=== PATIENT | female | born 1985 | race Caucasian/White ===

== ENCOUNTER 2016-07-09 17:18 | Outpatient (CLI) | payer MEDICAID ==
[~2016-07-09] VITALS: Ht 152.4 cm; Wt 85.9 kg
[~2016-07-09 17:18] MED LIST: NITR-58 PO; PREN-39 PO
[2016-07-09 17:37] VITALS: BP 107/67; PULSE 93; RESP 18; Ht 152.4 cm; Wt 85.9 kg
[2016-07-09] MEDS ORDERED: ACETAMINOPHEN 325 MG TAB PO ONE (19:00)
[2016-07-09 19:22] LABS: ADD UMIC NO; URINE BILIRUBIN (Dip) NEGATIVE (NEGATIVE); URINE BLOOD (Dip) NEGATIVE (NEGATIVE); URINE COLOR YELLOW (YELLOW); URINE GLUCOSE (Dip) NEGATIVE (NEGATIVE); URINE KETONES (Dip) NEGATIVE (NEGATIVE); URINE LEUKOCYTE ESTERASE (Dip) NEGATIVE (NEGATIVE); URINE NITRITE (Dip) NEGATIVE (NEGATIVE); URINE TOTAL PROTEIN (Dip) NEGATIVE (NEGATIVE); URINE UROBILINOGEN (Dip) 1.0 E.U./dL (0.1-1.0)
--- NOTE | 2016-07-09 20:13 | QN ---
Documentation Comment 30 years old with history of 4 and due dates of August 15 with at 34 weeks and 5 days presented with complaint of vaginal pressure. She denies any leaking of fluid, vaginal bleeding or contractions. She denies any dysuria, frequency or any other urinary symptoms. General appearance: Alert and oriented 4 and is not in acute distress. Next Abdomen: Soft, non tender, no rebound tenderness, no guarding no rigidity No suprapubic tenderness Vaginal examination: Cervix closed and long NST: Category 1 Rare contractions seen, patient does not feel them UA: Negative Assessment: IUP at 34 weeks and 5 days Vaginal and pelvic pressure, likely related to musculoskeletal pain No evidence of labor or uterine contractions seen No evidence of UTI Patient received a dose of Tylenol and her symptoms resolved Plan: Strict labor precaution and kick count discussed Follow-up in 2-3 days with her OB office recommended Tylenol as needed pelvic pain every 4 hours Patient verbalized understanding Adequate hydration BREANA GARRISON MD Jul 09, 2016 20:13
--- NOTE | 2016-07-09 23:21 | TRIAGE ---
OB Triage Datetime Report Generated by CPN: 07/09/2016 23:20 Datetime: 07/09/2016 19:31 Stage of : OB Triage Datetime: 07/09/2016 19:22 Labor Evaluation Frequency: 0 Monitor Mode: External Duration (sec)2399: 0 Pattern: Normal: <= 5 Contractions in 10 Minutes Contraction Comments: NONE Heart Rate FHR Baseline Rate: 135 Monitor Mode: External US FHR Baseline Changes: No Baseline Change Variability: Moderate 6-25 bpm Accelerations: 15X15 Decelerations: None Category: Category I Comments: NST REACTIVE, PT. REMOVED FROM EXTERNAL MONITORS Pain Presence: Intermittent Pain Type: Pressure Pain Location: Perineum Pain Assessment Comments: PT. STATES 'NO MUCHO' WHEN ASKED ABOUT PAIN LEVEL Datetime: 07/09/2016 19:14 Assessment Type: Triage Maternal Assessment Level of Consciousness: Fully Conscious DTR's/Clonus: DTRs 2+; No Clonus Headache: Denies Blurred Vision: No Respiratory Effort: Unlabored; Regular Rhythm; Equal Expansion Nausea/Vomiting: Denies RUQ Epigastric Pain: Denies Facial Edema: None Fall Risk Assessment History of Falling: (0) No Secondary Diagnosis: (0) No Ambulatory Aid: (0) Bedrest/Nurse Assist IV Therapy: (0) No Gait: (0) Normal/Bedrest/Immobile Mental Status: (0) Oriented to Own Ability Fall Score: 0 Fall Risk Score Definition: No Risk: No action required Datetime: 07/09/2016 18:30 Stage of : OB Triage Maternal Assessment Level of Consciousness: Fully Conscious Labor Evaluation Frequency: 1UC/HR Monitor Mode: External Duration (sec)2399: 90 Quality: Mild Resting Tone [place]: Relaxed Heart Rate FHR Baseline Rate: 145 Monitor Mode: External US Variability: Moderate 6-25 bpm Accelerations: 15X15 Decelerations: None Pain Assessment Pain Scale: 3 Pain Presence: Intermittent Pain Type: Ache Pain Location: Abdomen; Perineum Pain Goal: 3 Pain Relief Measures: Pain Medication Given Membrane Status: Intact Vaginal Bleeding: None Datetime: 07/09/2016 18:08 Vaginal Exam Dilatation (cms): 0.0 Exam By: ARDALAN Datetime: 07/09/2016 17:34 Assessment Type: Triage Maternal Assessment Level of Consciousness: Fully Conscious DTR's/Clonus: DTRs 2+; No Clonus Headache: Denies Blurred Vision: No Respiratory Effort: Unlabored; Regular Rhythm; Equal Expansion Breath Sounds, Left: Clear and Equal Breath Sounds, Right: Clear and Equal Nausea/Vomiting: Denies RUQ Epigastric Pain: Denies Lower Extremities Edema: None Degree: None Upper Extremities Edema: None Degree: None Facial Edema: None Fall Risk Assessment History of Falling: (0) No Secondary Diagnosis: (0) No Ambulatory Aid: (0) Bedrest/Nurse Assist IV Therapy: (0) No Gait: (0) Normal/Bedrest/Immobile Mental Status: (0) Oriented to Own Ability Fall Score: 0 Fall Risk Score Definition: No Risk: No action required Datetime: 07/09/2016 17:33 EGA: 34.5 Datetime: 07/09/2016 17:32 Time of Arrival: 07/09/2016 17:15 Arrived By: Ambulatory Arrived From: Home Chief Complaint: pt here c/o abd. pain AND VAG. PRESSURE. Movement: Present Contractions: Denies/Absent Rupture of Membranes: Denies Vaginal Discharge: Denies Recent Sexual Intercouse: Denies Abdominal Trauma: Not Applicable Patient Complaints: Other Time Provider Notified: 07/09/2016 17:50 Provider Notified: RAZ Initial Plan: UA, TYLENOL, PO HYDRATION,
== END 2016-07-09 19:56 | disposition home or self-care (01) ==
LOC: OBT 17:18 → L-D 17:18 → OBT 19:56
PROVIDERS: ATTEND Obstetrics & Gynecology
DX: O26.893 Other specified pregnancy related conditions, third trimester (principal); R10.2 Pelvic and perineal pain; Z3A.34 34 weeks gestation of pregnancy
CPT/HCPCS: 81003; Z7500; Z7610; G0463

== ENCOUNTER 2016-08-07 18:38 | Inpatient (IN) | payer MEDICAID ==
[~2016-08-07] VITALS: Ht 152.4 cm; Wt 87.9 kg
[~2016-08-07 18:38] MED LIST changes: -NITR-58 PO
[2016-08-07 19:00] VITALS: Ht 152.4 cm; Wt 87.9 kg
[2016-08-07 19:01] VITALS: BP 120/72; PULSE 73; RESP 18
[2016-08-07] MEDS ORDERED: LACTATED RINGER'S 1,000 ML IV SCH (20:09)
[2016-08-07] MEDS ORDERED: CARBOPROST 250 MCG INJ IM PRN (20:30)
[2016-08-07] MEDS ORDERED: OXYTOCIN 30 UNITS/LR 500 ML IV PRN (20:30)
[2016-08-07] MEDS ORDERED: METHYLERGONOVINE 0.2 MG INJ IM PRN (20:30)
[2016-08-07] MEDS ORDERED: CEFAZOLIN 2 GM/50 ML (PMX) 50 ML IV SCH (20:30)
[2016-08-07] MEDS ORDERED: TERBUTALINE 1 MG/ML INJ SC ONE (20:30)
[2016-08-07] MEDS ORDERED: MISOPROSTOL 200 MCG TAB PR PRN (20:30)
--- NOTE | 2016-08-07 20:45 | HP ---
Date/Time of Note Date/Time of Note DATE: 08/07/16 TIME: 20:40 OB - History Hx of Present Free Text/Dictation 30 yo P4 @ 38wks 6 days, presents in early labor, prior c/d x 4, no VB, no LOF, good FM Chief Complaint: ctx Last Menstrual Period: Nov 09, 2015 Estimated Due Date: Aug 11, 2016 : 5 Para: 4 Care: Good Care Past Family/Social History * Past Medical, Surgical, Family and Obstetric Histories reviewed from chart. Blood Type: O+ Rubella: immune RPR/VDRL: Negative GBS Status: Negative HBsAG: Negative OB Admission Exam Vital Signs Vital Signs Vital Signs Date Time Temp Pulse Resp B/P Pulse Ox O2 Delivery O2 Flow Rate FiO2 08/07/16 19:01 98.2 73 18 120/72 Room Air YONIS YEE MD Aug 07, 2016 20:45
[2016-08-07 20:49] LABS: ADD SCAN DIFF NO
[2016-08-07 20:51] LABS: BASOPHILS % 0.1 % (0.0-2.0); EOSINOPHILS % 0.5 % (0.0-7.0); HEMATOCRIT 34.7 % (37.0-47.0); HEMOGLOBIN 12.1 g/dl (12.0-16.0); LYMPHOCYTES # 2.3 10^3/ul (0.8-2.9); LYMPHOCYTES % 32.1 % (15.0-51.0); MEAN CORPUSCULAR HEMOGLOBIN 32.3 pg (29.0-33.0); MEAN CORPUSCULAR HGB CONC 34.9 g/dl (32.0-37.0); MEAN CORPUSCULAR VOLUME 92.5 fl (82.0-101.0); MEAN PLATELET VOLUME 12.1 fl (7.4-10.4); MONOCYTE # 0.5 10^3/ul (0.3-0.9); MONOCYTES % 6.2 % (0.0-11.0); NEUTROPHIL # 4.4 10^3/ul (1.6-7.5); NEUTROPHILS % 60.8 % (39.0-77.0); PLATELET COUNT 137 10^3/UL (140-415); RED BLOOD COUNT 3.75 10^6/ul (4.20-5.40); RED CELL DISTRIBUTION WIDTH 13.2 % (11.5-14.5); WHITE BLOOD COUNT 7.3 10^3/ul (4.8-10.8)
[2016-08-07] MEDS ORDERED: CITRIC ACID/NA CITRATE 30 ML CUP PO ONE (21:00)
[2016-08-07 21:01] LABS: INR 0.88; PARTIAL THROMBOPLASTIN TIME 29.8 Sec (25.0-35.0); PROTIME 11.9 Sec (12.2-14.2); PT RATIO 0.9
[2016-08-07] MEDS ORDERED: ONDANSETRON 4 MG INJ IV ONE (21:06)
[2016-08-07] MEDS ORDERED: KETOROLAC 30 MG INJ ONE (21:26)
[2016-08-07] MEDS ORDERED: OXYTOCIN 10 UNIT INJ ONE (21:26)
[2016-08-07] MEDS ORDERED: METOCLOPRAMIDE 10 MG INJ ONE (21:26)
[2016-08-07] MEDS ORDERED: DEXAMETHASONE 4 MG/ML 1 ML INJ ONE (21:26)
[2016-08-07] MEDS ORDERED: PHENYLephrine (100 MCG/ML) 5ML SYG ONE (21:26)
[2016-08-07] MEDS ORDERED: morphine SULFATE/PF (10 MG/10 ML) INJ ONE (21:26)
[2016-08-07] MEDS ORDERED: MEPERIDINE 100 MG INJ ONE (21:55)
[2016-08-07] MEDS ORDERED: KETOROLAC 30 MG INJ IV PRN (22:00)
[2016-08-07] MEDS ORDERED: ZOLPIDEM 5 MG TAB PO PRN (22:00)
[2016-08-07] MEDS ORDERED: DIPHENHYDRAMINE 50 MG INJ IV PRN (22:00)
[2016-08-07] MEDS ORDERED: HYDROmorphONE 1 MG/ML SYG IV PRN ×2 (22:00)
[2016-08-07] MEDS ORDERED: morphine 2 MG INJ IV PRN ×2 (22:00)
[2016-08-07] MEDS ORDERED: NALOXONE (0.4 MG/ML) INJ IV PRN (22:00)
[2016-08-07] MEDS ORDERED: PROCHLORPERAZINE 10 MG INJ IV PRN (22:00)
[2016-08-07] MEDS ORDERED: ONDANSETRON 4 MG INJ IV PRN (22:00)
[2016-08-07] MEDS: OXYTOCIN 30 UNITS/LR 500 ML IV SCH (23:37)
--- NOTE | 2016-08-08 00:05 | OPR ---
Operative Report Planned Procedure Free Text/Dictation h/o previous c/d x 4, patient presents in labor Procedure date Aug 07, 2016 Procedure(s) repeat c/d Performed by: YONIS YEE MD Assisting provider: PAVITHRA JEFFERSON M.D. Anesthesia Type: spinal Procedure Description Under satisfactory [spinal] anesthesia, the patient was prepped and draped and placed in a supine position, tilted to the left. Pfannenstiel incision was made , carried through the subcutaneous tissue. Bleeders brought under control with electrocautery. Fascia incised to the length of the incision. Rectus muscles from the fascia, divided midline. Peritoneum entered bluntly. Exploration of abdomen revealed gravid uterus. Dense adhesion between fascia and muscle noted. Bladder flap was developed. Transverse incision was made in the lower segment of the uterus. Amniotic sac ruptured. [clear] amniotic fluid noted. [] Nasal oropharyngeal suction was performed. The baby was handed to the team for immediate attention. The placenta was delivered manually intact. Uterine cavity was cleaned with wet sponge and drainage established. Uterus closed in 2 layers using [0 vicyrl] in continuous fashion. Bilateral tubal ligation performed by Pomery method. Peritoneal cavity irrigated with warm saline. Sponge, needle and instrument count reported to be correct. Abdominal peritoneum closed with [2 vicryl] continuously. Fascia closed with [0 vicryl], and skin closed with stella. Estimated blood loss [800]mL. Post-Procedure Findings: Live Baby [boy], Apgars [9] and [9], weight [], position [vtx], [] presentation []cord. Complications: None Pt Condition post procedure: stable Physician Certification I, the undersigned physician, hereby certify that I have discussed the procedure described in this consent form with this patient (or the patient's legal account maintenance representative), including: * The risk and benefits of the procedure; * Any adverse reactions that may reasonably be expected to occur; * Any alternative efficacious methods of treatment which may be medically viable ; * The potential problems that may occur during recuperation; * Potential for blood transfusion and associated risks/benefits; and * Any research or economic interest I may have regarding this treatment. I further certify that the patient/legally responsible person was encouraged to ask question and that all questions were answered. YONIS YEE MD Aug 08, 2016 00:05
[2016-08-08] MEDS: OXYTOCIN 30 UNITS/LR 500 ML IV SCH (00:09)
[2016-08-08] MEDS ORDERED: OXYTOCIN 30 UNITS/LR 500 ML IV PRN (00:30)
[2016-08-08] MEDS ORDERED: METHYLERGONOVINE 0.2 MG INJ IM PRN (00:30)
[2016-08-08] MEDS ORDERED: LANOLIN 7 GM TUBE TOP PRN (00:30)
[2016-08-08] MEDS ORDERED: CEFAZOLIN 2 GM/50 ML (PMX) 50 ML IV ONE (00:30)
[2016-08-08] MEDS ORDERED: CARBOPROST 250 MCG INJ IM PRN (00:30)
[2016-08-08] MEDS ORDERED: MISOPROSTOL 200 MCG TAB PR PRN (00:30)
[2016-08-08 01:50] VITALS: BP 142/69; PULSE 61
[2016-08-08 02:50] VITALS: BP 127/75; PULSE 71; RESP 19
[2016-08-08] MEDS: LACTATED RINGER'S 1,000 ML IV SCH ×3 (03:24→16:05)
[2016-08-08] MEDS ORDERED: CEFAZOLIN 2 GM/50 ML (PMX) 50 ML IVPB ONE (05:00)
[2016-08-08 08:08] LABS: ADD SCAN DIFF NO
[2016-08-08 08:10] LABS: BASOPHILS % 0.1 % (0.0-2.0); HEMATOCRIT 32.9 % (37.0-47.0); HEMOGLOBIN 11.6 g/dl (12.0-16.0); LYMPHOCYTES # 1.3 10^3/ul (0.8-2.9); LYMPHOCYTES % 11.5 % (15.0-51.0); MEAN CORPUSCULAR HEMOGLOBIN 32.8 pg (29.0-33.0); MEAN CORPUSCULAR HGB CONC 35.3 g/dl (32.0-37.0); MEAN CORPUSCULAR VOLUME 92.9 fl (82.0-101.0); MEAN PLATELET VOLUME 11.9 fl (7.4-10.4); MONOCYTE # 0.5 10^3/ul (0.3-0.9); MONOCYTES % 4.7 % (0.0-11.0); NEUTROPHIL # 9.3 10^3/ul (1.6-7.5); NEUTROPHILS % 83.4 % (39.0-77.0); PLATELET COUNT 137 10^3/UL (140-415); RED BLOOD COUNT 3.54 10^6/ul (4.20-5.40); RED CELL DISTRIBUTION WIDTH 13.1 % (11.5-14.5); WHITE BLOOD COUNT 11.1 10^3/ul (4.8-10.8)
--- NOTE | 2016-08-08 08:14 | OPPN ---
Date/Time of Note Date/Time of Note DATE: 08/08/16 TIME: 08:14 Post-Anesthesia Notes Post-Anesthesia Note Activity: WNL Respiratory function: WNL Cardiovascular function: WNL Mental status: Baseline Pain reasonably controlled: Yes Hydration appropriate: Yes Nausea/Vomiting absent: Yes HILARIO GAUTHIER MD Aug 08, 2016 08:14
[2016-08-08 08:30] VITALS: BP 115/67; PULSE 68; RESP 18
--- NOTE | 2016-08-08 09:54 | PN ---
Date/Time of Note Date/Time of Note DATE: 08/08/16 TIME: 09:53 OB Subjective Subjective Subjective Post day 1 Afebrile, vital signs stable, abdomen soft moderately distended bowel sounds weak but present, lochia moderate extremity normal ambulation encouraged Laboratory Tests Test 08/07/16 20:30 08/08/16 07:58 White Blood Count 7.310^3/ul 11.110^3/ul Red Blood Count 3.7510^6/ul 3.5410^6/ul Hemoglobin 12.1g/dl 11.6g/dl Hematocrit 34.7% 32.9% Mean Corpuscular Volume 92.5fl 92.9fl Mean Corpuscular Hemoglobin 32.3pg 32.8pg Mean Corpuscular Hemoglobin Concent 34.9g/dl 35.3g/dl Red Cell Distribution Width 13.2% 13.1% Platelet Count 18419^3/UL 75203^3/UL Mean Platelet Volume 12.1fl 11.9fl Neutrophils % 60.8% 83.4% Lymphocytes % 32.1% 11.5% Monocytes % 6.2% 4.7% Eosinophils % 0.5% 0.0% Basophils % 0.1% 0.1% Nucleated Red Blood Cells % 0.0/100WBC 0.0/100WBC Neutrophils # 4.410^3/ul 9.310^3/ul Lymphocytes # 2.310^3/ul 1.310^3/ul Monocytes # 0.510^3/ul 0.510^3/ul Eosinophils # 0.010^3/ul 0.010^3/ul Basophils # 0.010^3/ul 0.010^3/ul Nucleated Red Blood Cells # 0.010^3/ul 0.010^3/ul Prothrombin Time 11.9Sec Prothrombin Time Ratio 0.9 INR International Normalized Ratio 0.88 Activated Partial Thromboplast Time 29.8Sec Current Medications Medications (Trade) Dose Ordered Sig/Wilbur Route PRN Reason Start Time Stop Time Status Last Admin Dose Admin Lactated Ringer's 1,000 ml @ 125 mls/hr Q8H IV 08/07/16 20:09 08/08/16 01:59 DC 08/07/16 20:27 Cefazolin Sodium/ Dextrose 50 ml @ 100 mls/hr ONCE IV 08/07/16 20:30 08/08/16 01:59 DC Oxytocin/Lactated Ringer's 500 ml @ 125 mls/hr ONCE IV 08/07/16 20:30 08/08/16 01:59 DC 08/08/16 00:09 Oxytocin/Lactated Ringer's 500 ml @ 0 mls/hr ONCE PRN IV For Hemorrhage Management 08/07/16 20:30 08/08/16 01:59 DC Methylergonovine Maleate (Methergine) 0.2 mg ONCE PRN IM VAGINAL BLEEDING 08/07/16 20:30 08/08/16 01:59 DC 08/08/16 01:24 Carboprost Tromethamine (Hemabate) 250 mcg ONCE PRN IM VAGINAL BLEEDING 08/07/16 20:30 08/08/16 01:59 DC Misoprostol (Cytotec) 1,000 mcg ONCE PRN OK VAGINAL BLEEDING 08/07/16 20:30 08/08/16 01:59 DC Terbutaline Sulfate (Brethine) 0.25 mg ONCE ONCE SC 08/07/16 20:30 08/08/16 01:59 DC 08/07/16 20:32 Ondansetron HCl (Zofran Inj) 4 mg ONCE ONCE IV 08/07/16 21:06 08/07/16 21:07 DC 08/07/16 21:09 Citric Acid/ Sodium Citrate (Bicitra) 30 ml ONCE ONCE PO 08/07/16 21:00 08/07/16 21:06 DC 08/07/16 21:08 Morphine Sulfate (Duramorph) 10 mg STK-MED ONCE .ROUTE 08/07/16 21:26 08/07/16 21:27 DC Metoclopramide HCl (Reglan) 10 mg STK-MED ONCE .ROUTE 08/07/16 21:26 08/07/16 21:27 DC Oxytocin (Oxytocin) 10 units STK-MED ONCE .ROUTE 08/07/16 21:26 08/07/16 21:27 DC Phenylephrine HCl (Adrian-Synephrine Inj Syg) 500 mcg STK-MED ONCE .ROUTE 08/07/16 21:26 08/07/16 21:27 DC Ketorolac Tromethamine (Toradol) 30 mg STK-MED ONCE .ROUTE 08/07/16 21:26 08/07/16 21:27 DC Dexamethasone (Decadron) 4 mg STK-MED ONCE .ROUTE 08/07/16 21:26 08/07/16 21:27 DC Meperidine HCl (Demerol) 100 mg STK-MED ONCE .ROUTE 08/07/16 21:55 08/07/16 21:56 DC Naloxone HCl (Narcan) 0.1 mg Q2M PRN IV FOR RESP RATE 8 OR LESS 08/07/16 22:00 08/08/16 21:59 Ketorolac Tromethamine (Toradol) 30 mg Q6H PRN IV PAIN 08/07/16 22:00 08/08/16 21:59 Morphine Sulfate (morphine) 2 mg Q3H PRN IV PAIN LEVEL 1-5 08/07/16 22:00 08/08/16 21:59 Morphine Sulfate (morphine) 4 mg Q3H PRN IV PAIN LEVEL 6-10 08/07/16 22:00 08/08/16 21:59 Hydromorphone HCl (Dilaudid) 0.2 mg Q3H PRN IV PAIN LEVEL 1-5 08/07/16 22:00 08/08/16 21:59 Hydromorphone HCl (Dilaudid) 0.4 mg Q3H PRN IV PAIN LEVEL 6-10 08/07/16 22:00 08/08/16 21:59 Diphenhydramine HCl (Benadryl) 25 mg Q6H PRN IV ITCHING 08/07/16 22:00 08/08/16 21:59 Ondansetron HCl (Zofran Inj) 4 mg Q6H PRN IV NAUSEA AND/OR VOMITING 08/07/16 22:00 08/08/16 21:59 Prochlorperazine (Compazine Inj) 10 mg ONCE PRN IV NAUSEA AND/OR VOMITING 08/07/16 22:00 08/08/16 21:59 Zolpidem Tartrate (Ambien) 5 mg HS MAY REPEAT X 1 PRN PO INSOMNIA 08/07/16 22:00 08/08/16 21:59 Miscellaneous Information Duramorph: 0.2 mg Spi... GIVEN XX 08/07/16 22:00 Lactated Ringer's 1,000 ml @ 125 mls/hr Q8H IV 08/08/16 00:05 08/08/16 03:24 Cefazolin Sodium/ Dextrose (Ancef 2 Gm/50 ml (Pmx)) 50 ml @ 100 mls/hr ONCE ONCE IV 08/08/16 00:30 08/08/16 00:59 DC Acetaminophen/ Codeine Phosphate (Tylenol No.3) 1 tab Q4H PRN PO PAIN LEVEL 4-6 08/08/16 22:00 Acetaminophen/ Codeine Phosphate (Tylenol No.3) 2 tab Q4H PRN PO PAIN LEVEL 7-10 08/08/16 22:00 Ibuprofen (Motrin) 600 mg Q6 PO 08/09/16 00:00 Simethicone (Mylicon) 160 mg Q8H PRN PO DISTENSION/GAS/BLOATING 08/08/16 00:30 Lanolin 1 applic 1 applic BEDSIDE MEDICATION PRN TOP BEDSIDE FOR GUILLERMO TO NIPPLES 08/08/16 00:30 Oxytocin/Lactated Ringer's 500 ml @ 0 mls/hr ONCE PRN IV For Hemorrhage Management 08/08/16 00:30 Methylergonovine Maleate (Methergine) 0.2 mg ONCE PRN IM VAGINAL BLEEDING 08/08/16 00:30 Carboprost Tromethamine (Hemabate) 250 mcg ONCE PRN IM VAGINAL BLEEDING 08/08/16 00:30 Misoprostol 1000 mcg 1,000 mcg ONCE PRN OK VAGINAL BLEEDING 08/08/16 00:30 Cefazolin Sodium/ Dextrose (Ancef 2 Gm/50 ml (Pmx)) 50 ml @ 100 mls/hr ONCE ONCE IVPB 08/08/16 05:00 08/08/16 05:29 DC 08/08/16 05:29 Influenza Virus Vaccine (Fluzone) 0.5 ml ONCE ONCE IM* 08/10/16 09:00 08/10/16 09:01 MIREYA CRANDALL MD Aug 08, 2016 09:54
[2016-08-08 16:23] VITALS: BP 100/62; PULSE 78; RESP 18
[2016-08-08 19:55] VITALS: BP 110/56; PULSE 80; RESP 19
[2016-08-08] MEDS ORDERED: ACETAMINOPHEN/CODEINE #3 TAB PO PRN (22:00)
[2016-08-08] MEDS: IBUPROFEN 600 MG TAB PO SCH (23:54)
[2016-08-09] MEDS: LACTATED RINGER'S 1,000 ML IV SCH ×2 (00:05→06:55)
[2016-08-09 03:50] VITALS: BP 102/53; PULSE 77; RESP 18
[2016-08-09] MEDS: IBUPROFEN 600 MG TAB PO SCH ×3 (05:39→18:00)
[2016-08-09 08:30] VITALS: BP 102/62; PULSE 66; RESP 18
--- NOTE | 2016-08-09 14:00 | QN ---
Documentation Comment POD#1 is stable afebrile NO VB +Flatus +Adequate urine BP WNL VS satble Gen NAD Abd Soft NT ND Dressing Removed Genitalia No blood at perinium --->Ambulation PAVITHRA JEFFERSON M.D. Aug 09, 2016 14:00
[2016-08-09] MEDS: ACETAMINOPHEN/CODEINE #3 TAB PO PRN ×2 (15:52→22:41)
[2016-08-09 16:11] VITALS: BP 110/61; PULSE 88; RESP 18
[2016-08-09 20:15] VITALS: BP 117/68; PULSE 71; RESP 18
[2016-08-10 03:27] VITALS: BP 106/66; PULSE 78; RESP 18
[2016-08-10] MEDS: IBUPROFEN 600 MG TAB PO SCH ×3 (05:49→12:39)
[2016-08-10 08:15] VITALS: BP 104/55; PULSE 77; RESP 16
[2016-08-10] MEDS ORDERED: INFLUENZA VIRUS VACCINE 0.5 ML (DISPENSING) IM* ONE (09:00)
--- NOTE | 2016-08-10 10:22 | DS ---
Date/Time of Note Date/Time of Note DATE: 08/10/16 TIME: 10:16 Discharge Summary Admission/Discharge Info Admit Date/Time Aug 07, 2016 at 20:40 Discharge Date/Time August, Final Diagnosis Term history of previous C-sections Patient Condition: Good Procedures Repeat section Hx of Present Illness Term with history of previous Hospital Course Uneventful Home Meds Reported Medications Vits W-Ca,Fe,Fa(<1MG) ( Vitamins) 1 Tab Tablet, 1 TAB PO 08/14/12 MIREYA CRANDALL MD Aug 10, 2016 10:22
== END 2016-08-10 14:00 | disposition home or self-care (01) | DRG 766 ==
LOC: OBT 18:38 → L-D 18:38 → OBT 20:40 → L-D 21:30 → PP1 08-08 01:49
PROVIDERS: ADMIT Obstetrics & Gynecology; ATTEND Obstetrics & Gynecology
PROC: 10D00Z1 Extraction of Products of Conception, Low, Open Approach (ICD-10-PCS; principal; 2016-08-08)
PROC: 0UB70ZZ Excision of Bilateral Fallopian Tubes, Open Approach (ICD-10-PCS; 2016-08-08)
DX: O34.211 Maternal care for low transverse scar from previous cesarean delivery (principal); Z30.2 Encounter for sterilization; Z3A.38 38 weeks gestation of pregnancy; Z37.0 Single live birth
CPT/HCPCS: 36415; 85025; 85610; 85730; 86592; 86850; 86900; 86901; 86920; 88302; 90686; 94760; 96372; 99464; G0463; J0690; J1100; J1885; J2175; J2210; J2274; J2370; J2405; J2590; J2765; J3105; J7120

== ENCOUNTER 2017-03-18 17:25 | Emergency (ER) | payer MEDICAID ==
[~2017-03-18] VITALS: Wt 86.3 kg
[2017-03-18] MEDS ORDERED: IBUP-1542 PO (19:59)
--- NOTE | 2017-03-18 23:32 | ERD ---
ER Documentation Chief Complaint Chief Complaint pain at csect area x 6 month HPI Presenting to the emergency department complaining of pain at her site for the past 6 months. Patient describes the pain as achy and constant. She denies any fevers. She denies any dysuria. ROS All systems reviewed and are negative except as per history of present illness. Medications Home Meds Active Scripts Ibuprofen* (Motrin*) 600 Mg Tab, 600 MG PO Q6H Y for PAIN AND OR ELEVATED TEMP, #30 TAB Prov:MONET DEL CASTILLO PA-C 03/18/17 Reported Medications Vits W-Ca,Fe,Fa(<1MG) ( Vitamins) 1 Tab Tablet, 1 TAB PO 08/14/12 Allergies Allergies: Coded Allergies: No Known Drug Allergy (Unverified Allergy, Unknown, 12/26/15) PMhx/Soc History of Surgery: Yes () Anesthesia Reaction: No Hx Neurological Disorder: No Hx Respiratory Disorders: No Hx Cardiac Disorders: No Hx Psychiatric Problems: No Hx Miscellaneous Medical Probl: Yes (Pharyngitis,Miscarriage) Hx Alcohol Use: Yes Hx Substance Use: No Hx Tobacco Use: No Smoking Status: Never smoker Physical Exam Vitals Vital Signs Date Time Temp Pulse Resp B/P Pulse Ox O2 Delivery O2 Flow Rate FiO2 03/18/17 17:34 98.7 86 20 111/64 98 Physical Exam Const: [] Head: Atraumatic Eyes: Normal Conjunctiva ENT: Normal External Ears, Nose and Mouth. Neck: Full range of motion..~ No meningismus. Resp: Clear to auscultation bilaterally Cardio: Regular rate and rhythm, no murmurs Abd: Soft, non tender, non distended. Normal bowel sounds Skin: Well healed horizontal incision site pelvic hes Back: No midline or flank tenderness Ext: No cyanosis, or edema Neur: Awake and alert Psych: Normal Mood and Affect Results 24 hrs Laboratory Tests Test 03/18/17 19:30 Urine Color YELLOW Urine Clarity SLIGHTLY CLOUDY Urine pH 5.0 Urine Specific [place] 1.030 Urine Ketones NEGATIVEmg/dL Urine Nitrite NEGATIVEmg/dL Urine Bilirubin NEGATIVEmg/dL Urine Urobilinogen 1+mg/dL Urine Leukocyte Esterase NEGATIVELeu/ul Urine Microscopic RBC 140/HPF Urine Microscopic WBC 1/HPF Urine Squamous Epithelial Cells FEW/HPF Urine Mucus FEW/HPF Urine Hemoglobin 3+mg/dL Urine Glucose NEGATIVEmg/dL Urine Total Protein NEGATIVEmg/dl Procedures/MDM This is a 31-year-old female presenting to the emergency department complaining of pain at the section incisional site for the past 6 months. On examination there was no evidence of dehiscence, cellulitis, seroma. I discussed with patient that she stable to be discharged home to follow-up with her [employer]. Urinalysis did not show any evidence of dysuria. Departure Diagnosis: Primary Impression: Post-op pain Condition: Stable Patient Instructions: Managing Post-Op Pain at Home: Medications, Post Op Wound Check, General, Post Op Wound Check, Pain Additional Instructions: Visite a brar bernard albarado para un EXAMEN.Regrese a estas instalaciones si no se mejora yimi esperbamos o yimi le dijimos. [place] toda la medicina dev y yimi se le indic. Regrese a estas instalaciones si no se mejora yimi esperbamos o yimi le dijimos. MONET DEL CASTILLO PA-C Mar 18, 2017 23:32
== END 2017-03-18 20:07 | disposition home or self-care (01) ==
LOC: FTE 17:25
DX: G89.18 Other acute postprocedural pain (principal)
CPT/HCPCS: 81001; Z7502; 99283

== ENCOUNTER 2017-08-21 18:03 | Emergency (ER) | END 2017-08-21 20:42 | disposition home or self-care (01) ==

== ENCOUNTER 2018-05-27 11:56 | Emergency (ER) | payer MEDICAID ==
[~2018-05-27] VITALS: Wt 78.0 kg
[~2018-05-27 11:56] MED LIST changes: +CYCL10TA7 PO; +IBUP-1542 PO
[2018-05-27 12:00] VITALS: BP 128/67; PULSE 78; RESP 18
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
[2018-05-27] MEDS ORDERED: ACETAMINOPHEN 325 MG TAB ONE (12:57)
[2018-05-27] MEDS ORDERED: IBUPROFEN 600 MG TAB ONE (12:57)
[2018-05-27] MEDS ORDERED: ACETAMINOPHEN 325 MG TAB PO ONE (13:00)
[2018-05-27] MEDS ORDERED: IBUPROFEN 600 MG TAB PO ONE (13:00)
[2018-05-27] MEDS ORDERED: ACET325T33 PO (13:17)
[2018-05-27] MEDS ORDERED: IBUP-1561 PO (13:17)
== END 2018-05-27 13:31 | disposition home or self-care (01) ==
LOC: FTE 11:56
DX: M54.2 Cervicalgia (principal); M62.838 Other muscle spasm
CPT/HCPCS: Z7502; Z7610; 99282